=== PATIENT | female | born 1975 | race Caucasian/White ===

== ENCOUNTER 2017-08-21 15:04 | Emergency (ER) | payer BC ==
[~2017-08-21] VITALS: Ht 172.7 cm; Wt 65.0 kg
[2017-08-21 16:08] LABS: BASOPHILS % (AUTO) 0.3 % (0-1); EOSINOPHILS # (AUTO) 0.2 X10'3 (0-0.9); EOSINOPHILS % (AUTO) 1.1 % (0-6); HEMATOCRIT 37.3 % (35.0-45.0); HEMOGLOBIN 13.1 g/dl (12.0-16.0); LYMPHOCYTES # (AUTO) 1.5 X10'3 (1.1-4.8); LYMPHOCYTES % (AUTO) 9.3 % (21-51); MEAN CORPUSCULAR HEMOGLOBIN 32.3 PG (27.0-31.0); MEAN CORPUSCULAR HGB CONC 35.2 % (33.0-36.5); MEAN CORPUSCULAR VOLUME 91.8 FL (78-98); MEAN PLATELET VOLUME 8.7 FL (7.4-10.4); MONOCYTES % (AUTO) 6.2 % (2-12); NEUTROPHILS # (AUTO) 13.3 X10'3 (1.8-7.7); NEUTROPHILS % (AUTO) 83.1 % (42-75); PLATELET COUNT 270 X10'3 (140-440); RED BLOOD COUNT 4.06 X10'6 (4.20-5.60); RED CELL DISTRIBUTION WIDTH 13.5 % (11.5-14.5)
[2017-08-21 16:22] LABS: ALANINE AMINOTRANSFERASE 24 U/L (12-78); ALBUMIN 3.5 G/DL (3.4-5.0); ALBUMIN/GLOBULIN RATIO 0.8 (1.1-1.5); ALKALINE PHOSPHATASE 94 IU/L (46-116); ANION GAP 10 (8-16); ASPARTATE AMINO TRANSFERASE 21 U/L (10-37); BILIRUBIN,TOTAL 0.7 MG/DL (0.1-1.0); BLOOD UREA NITROGEN 9 MG/DL (7-18); CALCIUM 9.3 MG/DL (8.5-10.1); CHLORIDE 99 MMOL/L (99-107); CREATININE 0.82 MG/DL (0.40-0.90); GLUCOSE 100 MG/DL (70-104); POTASSIUM 4.4 MMOL/L (3.5-5.1); SODIUM 138 MMOL/L (135-145); eGFR 76 ML/MIN
[2017-08-21] MEDS ORDERED: vancomycin/NS 1 GM ADD-VANTAGE 250 ML IV ONE (16:40)
[2017-08-21] MEDS ORDERED: normal saline 1000ml 1,000 ML IV ONE ×2 (16:40)
[2017-08-21] MEDS ORDERED: aztreonam inj. 1,000 MG in normal saline 100ml IV soln 100 ML IV ONE (16:45)
[2017-08-21] MEDS ORDERED: aztreonam inj. 1,000 MG in dextrose 5%-water 50ml 50 ML IV ONE (16:49)
[2017-08-21] MEDS ORDERED: iohexol 300mg/ml 100ml inj. ONE (17:17)
[2017-08-21] MEDS ORDERED: ibuprofen tablet 400 MG TABLET PO ONE (17:45)
[2017-08-21] MEDS ORDERED: OLME5TAB3 PO (19:12)
[2017-08-21 19:45] VITALS: BP 122/74
== END 2017-08-21 20:00 | disposition short-term general hospital (02) ==
LOC: ER 15:05
DX: A41.9 Sepsis, unspecified organism (principal); R59.0 Localized enlarged lymph nodes; I10 Essential (primary) hypertension; Z87.891 Personal history of nicotine dependence; Z88.1 Allergy status to other antibiotic agents
CPT/HCPCS: 36415; 70491; 80053; 83605; 85025; 87040; 96365; 96367; 99285; J3370; J3490; J7030; J7060; Q9967